=== PATIENT | female | born 1945 | race Caucasian/White ===

== ENCOUNTER 2017-11-29 09:14 | Outpatient (CLI) | payer MEDICARE, BC ==
[2017-11-29 09:47] LABS: BASOPHILS % (AUTO) 0.9 %; EOSINOPHILS # (AUTO) 0.1 10^3/uL (0.0-0.7); EOSINOPHILS % (AUTO) 2.8 %; HGB - HEMOGLOBIN 14.4 g/dL (12.0-16.0); LYMPHOCYTES # (AUTO) 1.1 10^3/uL (1.5-3.5); LYMPHOCYTES % (AUTO) 25.8 %; MEAN CORPUSCULAR HGB CONC 34.4 g/dL (32.0-36.0); MEAN CORPUSCULAR VOLUME 90.1 fL (81.0-99.0); MEAN PLATELET VOLUME 7.4 fL (7.9-10.8); MONOCYTES # (AUTO) 0.3 10^3/uL (0.0-1.0); MONOCYTES % (AUTO) 6.4 %; NEUTROPHILS # (AUTO) 2.8 10^3/uL (1.5-6.6); NEUTROPHILS % (AUTO) 64.1 %; PLT - PLATELET COUNT 215 10^3/uL (130-450); RED BLOOD COUNT 4.64 10^6/uL (4.20-5.40); RED CELL DISTRIBUTION WIDTH 13.5 % (12.0-15.0); WHITE BLOOD COUNT 4.4 x10^3/uL (4.8-10.8)
[2017-11-29 10:08] LABS: ALBUMIN 4.4 g/dL (3.2-5.5); ALBUMIN/GLOBULIN RATIO 1.7 (1.0-2.2); ALKALINE PHOSPHATASE 65 IU/L (42-121); ALT ALANINE AMINOTRANSFERASE 25 IU/L (10-60); AST ASPARTATE AMINOTRANSFERASE 26 IU/L (10-42); BILIRUBIN,TOTAL 1.4 mg/dL (0.2-1.0); BUN - BLOOD UREA NITROGEN 15 mg/dL (6-20); CALCIUM 9.5 mg/dL (8.5-10.3); CARBON DIOXIDE - CO2 27 mmol/L (21-32); CHLORIDE 106 mmol/L (101-111); CHOL/HDL RATIO 2.5 (<4.4); CHOLESTEROL 178 mg/dL; CK- CREATINE KINASE 184 IU/L (22-269); CREATININE 0.8 mg/dL (0.4-1.0); GFR - MDRD 71 (>89); GLUCOSE 107 mg/dL (70-100); HDL CHOLESTEROL 72 mg/dL; LDL CHOLESTEROL,CALCULATED 95 mg/dL; LDL/HDL RATIO 1.3 (<4.4); SODIUM 139 mmol/L (135-145); VLDL CHOLESTEROL 11 mg/dL
[2017-11-30 13:43] LABS: HEPATITIS C ANTIBODY NON-REACTIVE (NON-REACTIVE)
[2017-12-03 14:32] LABS: HEMOGLOBIN A1C 0.56 g/dL; HEMOGLOBIN A1C % 5.6 % (4.6-6.2)
== END 2017-11-29 09:15 | disposition home or self-care (01) ==
LOC: LAB 09:14
PROVIDERS: ATTEND Internal Medicine
DX: M19.90 Unspecified osteoarthritis, unspecified site (principal); Z79.899 Other long term (current) drug therapy; H40.9 Unspecified glaucoma; E78.5 Hyperlipidemia, unspecified; M85.80 Other specified disorders of bone density and structure, unspecified site; Z13.6 Encounter for screening for cardiovascular disorders; Z11.59 Encounter for screening for other viral diseases
CPT/HCPCS: 36415; 80053; 80061; 82550; 83036; 83721; 84443; 85025; 86803

== ENCOUNTER 2017-12-03 08:00 | Outpatient (CLI) | payer MEDICARE, BC ==
[2017-12-03 14:32] LABS: HEMOGLOBIN A1C 0.56 g/dL; HEMOGLOBIN A1C % 5.6 % (4.6-6.2)
== END 2017-12-03 08:01 ==
LOC: LAB.R 08:00
PROVIDERS: ATTEND Internal Medicine
DX: R73.01 Impaired fasting glucose (principal)
CPT/HCPCS: 83036

== ENCOUNTER 2018-01-03 14:47 | Outpatient (CLI) | payer MEDICARE, BC ==
--- NOTE | 2018-01-03 15:38 | CT Report ---
Reason: R FLANK PAIN Procedure Date: 01/03/2018 Accession Number: [id number] / [id number] Procedure: CT - Abdomen/Pelvis W/O CPT Code: FULL RESULT: EXAM: CT ABDOMEN AND PELVIS EXAM DATE: 01/03/2018 03:11 PM. CLINICAL HISTORY: Right FLANK PAIN. COMPARISONS: None. TECHNIQUE: Routine helical CT imaging was performed through the abdomen and pelvis. IV contrast: None. Enteric contrast: Oral contrast. Reconstructions: Coronal and sagittal. In accordance with CT protocol optimization, one or more of the following dose reduction techniques were utilized for this exam: automated exposure control, adjustment of mA and/or KV based on patient size, or use of iterative reconstructive technique. FINDINGS: Lung Bases: Emphysematous changes. Liver: Normal. No masses. Gallbladder/Bile Ducts: Unremarkable. Spleen: Normal. Pancreas: Normal. Adrenal Glands: Normal. Kidneys: Normal. No masses, stones or hydronephrosis. Normal ureters bilaterally. Peritoneal Cavity/Bowel: Normal. No free fluid, free air or adenopathy. No masses or acute inflammatory process. The appendix is well visualized and normal. Pelvic Organs: Hysterectomy. No stones in the small caliber urinary bladder. No free fluid nor adnexal mass lesions. Normal rectum. Vasculature: No aneurysms or other significant abnormality. Bones: Multilevel marked degenerative disk disease lumbar spine. No significant abnormality. Other: None. IMPRESSION: 1. Chronic lung disease. 2. Otherwise, unremarkable exam. No radiographic explanation for this lady's presenting symptoms. RADIA
== END 2018-01-03 14:48 | disposition home or self-care (01) ==
LOC: DI 14:47
PROVIDERS: ATTEND Internal Medicine
DX: R10.9 Unspecified abdominal pain (principal)
CPT/HCPCS: 74176

== ENCOUNTER 2018-02-08 09:20 | Outpatient (CLI) | payer MEDICARE, BC ==
[2018-02-08] MEDS ORDERED: ALBUTEROL NEB 2.5 MG/3 ML INH SCH (09:30)
== END 2018-02-08 09:21 | disposition home or self-care (01) ==
LOC: RT 09:20
PROVIDERS: ATTEND Internal Medicine
DX: R05 Cough (principal)
CPT/HCPCS: 94060

== ENCOUNTER 2018-11-26 07:50 | Outpatient (CLI) | payer MEDICARE, BC ==
[2018-11-26 08:25] LABS: BASOPHILS % (AUTO) 0.7 %; EOSINOPHILS # (AUTO) 0.1 10^3/uL (0.0-0.7); EOSINOPHILS % (AUTO) 2.5 %; HGB - HEMOGLOBIN 13.7 g/dL (12.0-16.0); LYMPHOCYTES % (AUTO) 25.5 %; MEAN CORPUSCULAR HEMOGLOBIN 30.9 pg (27.0-31.0); MEAN CORPUSCULAR HGB CONC 33.3 g/dL (32.0-36.0); MEAN PLATELET VOLUME 9.1 fL (7.9-10.8); MONOCYTES # (AUTO) 0.3 10^3/uL (0.0-1.0); MONOCYTES % (AUTO) 7.4 %; NEUTROPHILS # (AUTO) 2.6 10^3/uL (1.5-6.6); NEUTROPHILS % (AUTO) 63.7 %; PLT - PLATELET COUNT 200 10^3/uL (130-450); RED BLOOD COUNT 4.43 10^6/uL (4.20-5.40); RED CELL DISTRIBUTION WIDTH 12.6 % (12.0-15.0); WHITE BLOOD COUNT 4.1 x10^3/uL (4.8-10.8)
[2018-11-26 08:54] LABS: ALBUMIN 4.1 g/dL (3.2-5.5); ALBUMIN/GLOBULIN RATIO 1.6 (1.0-2.2); ALKALINE PHOSPHATASE 60 IU/L (42-121); ALT ALANINE AMINOTRANSFERASE 25 IU/L (10-60); AST ASPARTATE AMINOTRANSFERASE 25 IU/L (10-42); BILIRUBIN,TOTAL 1.5 mg/dL (0.2-1.0); BUN - BLOOD UREA NITROGEN 17 mg/dL (6-20); CALCIUM 9.6 mg/dL (8.5-10.3); CARBON DIOXIDE - CO2 25 mmol/L (21-32); CHLORIDE 106 mmol/L (101-111); CHOL/HDL RATIO 2.3 (<4.4); CHOLESTEROL 152 mg/dL; CK- CREATINE KINASE 128 IU/L (22-269); CREATININE 0.8 mg/dL (0.4-1.0); GFR - MDRD 71 (>89); GLUCOSE 100 mg/dL (70-100); HDL CHOLESTEROL 66 mg/dL; LDL CHOLESTEROL,CALCULATED 73 mg/dL; LDL/HDL RATIO 1.1 (<4.4); SODIUM 141 mmol/L (135-145); TOTAL PROTEIN 6.7 g/dL (6.7-8.2); URIC ACID 5.1 mg/dL (2.6-7.2); VLDL CHOLESTEROL 13 mg/dL
[2018-11-26 09:14] LABS: RHEUMATOID FACTOR NEGATIVE (Negative)
[2018-11-26 09:20] LABS: HB2 TOTAL 14.6 g/dL; HEMOGLOBIN A1C 0.55 g/dL; HEMOGLOBIN A1C % 5.6 % (4.6-6.2)
[2018-11-26 09:26] LABS: CRP - C-REACTIVE PROTEIN < 1.0 mg/dL (0-1.0)
[2018-11-28 12:48] LABS: ANA SCREEN NEGATIVE (NEGATIVE)
== END 2018-11-26 07:51 | disposition home or self-care (01) ==
LOC: LAB 07:50
PROVIDERS: ATTEND Internal Medicine
DX: E78.5 Hyperlipidemia, unspecified (principal); R73.01 Impaired fasting glucose; Z12.12 Encounter for screening for malignant neoplasm of rectum; Z12.11 Encounter for screening for malignant neoplasm of colon; M25.50 Pain in unspecified joint; Z13.6 Encounter for screening for cardiovascular disorders; Z79.899 Other long term (current) drug therapy
CPT/HCPCS: 36415; 80053; 80061; 82550; 83036; 83721; 84443; 84550; 85025; 85651; 86038; 86140; 86200; 86430

== ENCOUNTER 2018-12-09 12:15 | Outpatient (CLI) | payer MEDICARE, BC ==
--- NOTE | 2018-12-09 14:01 | XRAY Report ---
Reason: COUGH,DYSPNEA Procedure Date: 12/09/2018 Accession Number: [id number] / [id number] Procedure: XR - Chest 2 View X-Ray CPT Code: 66613 FULL RESULT: EXAM: CHEST RADIOGRAPHY EXAM DATE: 12/09/2018 12:26 PM. CLINICAL HISTORY: Nonproductive cough and dyspnea for 1 month. COMPARISON: None. TECHNIQUE: 2 views. FINDINGS: Lungs/Pleura: No focal opacities evident. No pleural effusion. No pneumothorax. Overexpanded. Mediastinum: Heart and mediastinal contours are unremarkable. Other: None. IMPRESSION: Overexpanded lungs. RADIA
== END 2018-12-09 12:16 | disposition home or self-care (01) ==
LOC: DI 12:15
PROVIDERS: ATTEND Internal Medicine
DX: R06.00 Dyspnea, unspecified (principal); R05 Cough
CPT/HCPCS: 71046

== ENCOUNTER 2018-12-16 11:31 | Outpatient (CLI) | payer MEDICARE, BC ==
--- NOTE | 2018-12-16 12:01 | XRAY Report ---
Reason: PAIN IN LEFT FINGERS Procedure Date: 12/16/2018 Accession Number: [id number] / [id number] Procedure: XR - Hand 3 View LT CPT Code: FULL RESULT: EXAM: LEFT HAND RADIOGRAPHY EXAM DATE: 12/16/2018 11:41 AM. CLINICAL HISTORY: Pain in left fingers. COMPARISON: None. TECHNIQUE: 3 views. FINDINGS: Bones: Generalized bony demineralization. No fractures or bone lesions. Joints: Severe narrowing of the second, third, and fifth distal interphalangeal articulations. Moderate narrowing of the remainder of the interphalangeal articulations. There is moderate to severe narrowing of the first carpometacarpal articulation. Soft Tissues: . No soft tissue swelling. IMPRESSION: Moderate to severe degenerative changes of the interphalangeal articulations and the first carpometacarpal articulation. RADIA
== END 2018-12-16 11:32 | disposition home or self-care (01) ==
LOC: DI 11:31
PROVIDERS: ATTEND Internal Medicine
DX: M19.042 Primary osteoarthritis, left hand (principal); M18.12 Unilateral primary osteoarthritis of first carpometacarpal joint, left hand

== ENCOUNTER 2020-03-02 07:29 | Outpatient (CLI) | payer MEDICARE, BC ==
[2020-03-02 08:27] LABS: ALBUMIN/GLOBULIN RATIO 1.6 (1.0-2.2); ALKALINE PHOSPHATASE 69 IU/L (42-121); ALT ALANINE AMINOTRANSFERASE 27 IU/L (10-60); AST ASPARTATE AMINOTRANSFERASE 23 IU/L (10-42); BILIRUBIN,TOTAL 1.4 mg/dL (0.2-1.0); BUN - BLOOD UREA NITROGEN 13 mg/dL (6-20); CALCIUM 9.4 mg/dL (8.5-10.3); CARBON DIOXIDE - CO2 26 mmol/L (21-32); CHLORIDE 103 mmol/L (101-111); CHOL/HDL RATIO 2.7 (<4.4); CHOLESTEROL 163 mg/dL; CREATININE 0.8 mg/dL (0.4-1.0); GLUCOSE 109 mg/dL (70-100); HDL CHOLESTEROL 61 mg/dL; LDL CHOLESTEROL,CALCULATED 88 mg/dL; LDL/HDL RATIO 1.4 (<4.4); SODIUM 139 mmol/L (135-145); TOTAL PROTEIN 6.5 g/dL (6.7-8.2); URIC ACID 5.2 mg/dL (2.6-7.2); VLDL CHOLESTEROL 14 mg/dL
[2020-03-02 08:31] LABS: BASOPHILS % (AUTO) 0.9 %; CRP - C-REACTIVE PROTEIN < 1.0 mg/dL (0-1.0); EOSINOPHILS # (AUTO) 0.1 10^3/uL (0.0-0.7); HGB - HEMOGLOBIN 13.8 g/dL (12.0-16.0); LYMPHOCYTES # (AUTO) 1.1 10^3/uL (1.5-3.5); LYMPHOCYTES % (AUTO) 26.2 %; MEAN CORPUSCULAR HEMOGLOBIN 31.2 pg (27.0-31.0); MEAN CORPUSCULAR HGB CONC 33.6 g/dL (32.0-36.0); MEAN PLATELET VOLUME 9.7 fL (7.9-10.8); MONOCYTES # (AUTO) 0.3 10^3/uL (0.0-1.0); MONOCYTES % (AUTO) 6.7 %; NEUTROPHILS # (AUTO) 2.7 10^3/uL (1.5-6.6); PLT - PLATELET COUNT 219 10^3/uL (130-450); RED BLOOD COUNT 4.42 10^6/uL (4.20-5.40); RED CELL DISTRIBUTION WIDTH 12.5 % (12.0-15.0); WHITE BLOOD COUNT 4.3 x10^3/uL (4.8-10.8)
[2020-03-02 11:31] LABS: RHEUMATOID FACTOR NEGATIVE (Negative)
== END 2020-03-02 07:30 | disposition home or self-care (01) ==
LOC: LAB 07:29
PROVIDERS: ATTEND Family Medicine
DX: E78.5 Hyperlipidemia, unspecified (principal); R03.0 Elevated blood-pressure reading, without diagnosis of hypertension; M19.049 Primary osteoarthritis, unspecified hand
CPT/HCPCS: 36415; 80053; 80061; 83721; 84443; 84550; 85025; 85651; 86140; 86430

== ENCOUNTER 2020-03-30 08:20 | Outpatient (CLI) | payer MEDICARE, BC ==
--- NOTE | 2020-03-30 17:34 | DEXA Report ---
PROCEDURE: Dexa Spine and/or Hip INDICATIONS: POSTMENOPAUSAL TECHNIQUE: Dual energy x-ray absorptiometry (DXA) was performed on a JANZZ System. Regions measur ed are the AP Spine, femoral neck, and if needed forearm. COMPARISON: None. FINDINGS: Lumbar Spine: Bone Mineral Density 1.271 g/cm/cm,T score 0.8, normal Left Hip: Bone Mineral Density 0.798 g/cm/cm,T score -1.7, osteopenia Left Femoral Neck: Bone Mineral Density 0.733 g/cm/cm, T score -2.2, osteopenia (T score greater or equal to -1.0: NORMAL) (T score from -1.1 to -2.4: OSTEOPENIA) (T score less than or equal to -2.5 to: OSTEOPOROSIS) Impression: Osteopenia. Patients with diagnosis of osteoporosis or osteopenia should have regular bone mineral density assess ment. For those eligible for Medicare, routine testing is allowed once every 2 years. Testing frequ ency can be increased for patients who have rapidly progressing disease or for those who are receivin g medical therapy to restore bone mass. Reviewed by: Dorota Kang MD, PhD on 03/30/2020 5:33 PM PST Approved by: Dorota Kang MD, PhD on 03/30/2020 5:33 PM PST Station ID: [id number]
== END 2020-03-30 08:21 | disposition home or self-care (01) ==
LOC: DI 08:20
PROVIDERS: ATTEND Family Medicine
DX: M85.89 Other specified disorders of bone density and structure, multiple sites (principal); Z78.0 Asymptomatic menopausal state

== ENCOUNTER 2020-08-21 15:52 | Outpatient (CLI) | payer MEDICARE, BC | END 2020-08-21 15:53 | disposition critical access hospital (66) | LOC: EMS 15:52 | DX: R10.9 Unspecified abdominal pain (principal); R11.2 Nausea with vomiting, unspecified | CPT/HCPCS: A0425; A0427 ==

== ENCOUNTER 2020-08-21 16:01 | Emergency (ER) | payer MEDICARE, BC ==
[2020-08-21] MEDS ORDERED: HYDROmorphone 1 MG/ML CARPUJECT IVP STA (16:10)
[2020-08-21] MEDS ORDERED: ONDANSETRON 4 MG/2 ML VIAL IVP STA (16:10)
--- NOTE | 2020-08-21 16:14 | ED Physician Documentation ---
History of Present Illness - Stated complaint Stated Complaint: LRQ PX - Additonal information Additional information: 75-year-old female is brought to the emergency department via EMS for evaluation of acute onset right lower quadrant abdominal pain with associated nausea and vomiting. Pain does not radiate. No history of similar. She does retain her appendix but does have a surgical history of radical hysterectomy. No recent fevers. No dysuria urgency or frequency. Review of Systems Constitutional: denies: Fever, Chills Eyes: reports: Reviewed and negative Ears: reports: Reviewed and negative Nose: reports: Reviewed and negative Throat: reports: Reviewed and negative Cardiac: reports: Reviewed and negative Respiratory: reports: Reviewed and negative GI: reports: Abdominal Pain, Nausea, Vomiting. denies: Constipation, Diarrhea : denies: Dysuria, Frequency, Hesitancy Skin: reports: Reviewed and negative Musculoskeletal: reports: Reviewed and negative Neurologic: reports: Reviewed and negative PD PAST MEDICAL HISTORY - Present Medications Home Medications: Ambulatory Orders Medication Instructions Recorded Confirmed Ibuprofen [Motrin] 1 tablet PO BID 08/21/20 08/21/20 Simvastatin [Zocor] 40 mg PO HS 08/21/20 08/21/20 - Allergies Allergies/Adverse Reactions: Allergies Allergy/AdvReac Type Severity Reaction Status Date / Time No Known Drug Allergies Allergy Verified 08/21/20 16:13 PD ED PE EXPANDED - General General: Alert, In Pain - Cardiac Cardiac: Regular Rate, Radial strong equal, Pedal strong equal, Cap refill < 2 sec - Respiratory Respiratory: Clear to ausultation zuleima. No: Distress, Labored - Abdomen Abdomen: Normal Bowel sounds, Tender to palpation, Rebound, Guarding (equivocal mcburneys RLQ) - Derm Derm: Normal color, Warm and dry. No: Rash - Extremities Extremities: Normal. No: Deformity, Tenderness - Neuro Neuro: Alert and Oriented X 3, CNII-XII intact - GCS Eye Opening: Spontaneous Motor: Obeys Commands Verbal: Oriented Total: 15 Results - Vitals Vitals: Vital Signs - 24 hr 08/21/20 08/21/20 16:14 17:07 Temperature 36.7 C Heart Rate 61 66 Respiratory 16 14 Rate Blood Pressure 162/78 H 114/87 H O2 Saturation 99 96 Oxygen O2 Source Room air - Labs Labs: Laboratory Tests 05/09/21 05/09/21 05/09/21 16:17 16:17 16:17 WBC 4.0 L RBC 4.07 L Hgb 12.7 Hct 37.8 MCV 92.9 MCH 31.2 H MCHC 33.6 RDW 13.1 Plt Count 184 MPV 9.2 Neut # (Auto) 1.9 Lymph # (Auto) 1.6 [place] # (Auto) 0.3 Eos # (Auto) 0.1 Baso # (Auto) 0.0 Absolute Nucleated RBC 0.00 Nucleated RBC % 0.0 Sodium 140 Potassium 3.9 Chloride 104 Carbon Dioxide 28 Anion Gap 8.0 BUN 24 H Creatinine 0.8 Estimated GFR (MDRD) 70 L Glucose 114 H Lactic Acid 1.2 Calcium 9.2 Total Bilirubin 1.7 H AST 26 ALT 26 Alkaline Phosphatase 65 Total Protein 6.4 L Albumin 4.2 Globulin 2.2 Albumin/Globulin Ratio 1.9 Lipase 27 Urine Color Urine Clarity Urine pH Ur Specific [place] Urine Protein Urine Glucose (UA) Urine Ketones Urine Occult Blood Urine Nitrite Urine Bilirubin Urine Urobilinogen Ur Leukocyte Esterase Ur Microscopic Review Urine Culture Comments 08/21/20 17:50 WBC RBC Hgb Hct MCV MCH MCHC RDW Plt Count MPV Neut # (Auto) Lymph # (Auto) [place] # (Auto) Eos # (Auto) Baso # (Auto) Absolute Nucleated RBC Nucleated RBC % Sodium Potassium Chloride Carbon Dioxide Anion Gap BUN Creatinine Estimated GFR (MDRD) Glucose Lactic Acid Calcium Total Bilirubin AST ALT Alkaline Phosphatase Total Protein Albumin Globulin Albumin/Globulin Ratio Lipase Urine Color YELLOW Urine Clarity CLEAR Urine pH 7.0 Ur Specific [place] 1.015 Urine Protein NEGATIVE Urine Glucose (UA) NEGATIVE Urine Ketones NEGATIVE Urine Occult Blood NEGATIVE Urine Nitrite NEGATIVE Urine Bilirubin NEGATIVE Urine Urobilinogen 0.2 (NORMAL) Ur Leukocyte Esterase NEGATIVE Ur Microscopic Review NOT INDICATED Urine Culture Comments NOT INDICATED - Rads (name of study) CT abd Radiology: Final report received (Normal appendix. ), See rad report PD MEDICAL DECISION MAKING - ED course Complexity details: reviewed results, re-evaluated patient, considered differential, d/w patient ED course: 75-year-old female presents emergency department for acute right lower quadrant abdominal pain with associated nausea and vomiting. Pain was sudden sharp nonr adiating and severe. Screening labs revealed no leukocytosis. Mildly elevated BUN. Of note her T bili is 1.7 but the other transaminases are normal. On exam she was focally tender in the right lower quadrant. There was some guarding and rebound with an equivocal Domingo's. Urine showed no hematuria or signs of infection. We did undergo CT scanning of her abdomen with findings of a normal appendix. The biliary and gall system were also unremarkable. Here in the emergency department patient was given Dilaudid and Zofran with full resolution of symptoms. It is not clear why she had sudden onset right lower quadrant pain but this time she is tolerating oral diet and appears medically stable for discharge home. Emergent return precautions were discussed. Departure - Departure Disposition: , Self Care Clinical Impression: RLQ abdominal pain Condition: Stable Record reviewed to determine appropriate education?: Yes Instructions: ED Abdominal Pain Unkn Cause Comments: Juanita you were seen here in the emergency department today for sudden onset right lower quadrant abdominal pain. Your screening labs did not show any worrisome abnormalities. We were worried that this could be acute appendicitis. Therefore we did do a CT of your abdomen. Reassuringly your appendix is normal. It is not clear what caused your lower abdominal pain. However if the pain returns, you have uncontrolled vomiting fevers difficulty when you urinate please return immediately to the ER for a second look. It is important that you discuss this ED visit with your primary care provider. Please schedule a follow-up appointment in the next 1 to 2 weeks.
[2020-08-21 16:23] LABS: EOSINOPHILS # (AUTO) 0.1 10^3/uL (0.0-0.7); HCT - HEMATOCRIT 37.8 % (37.0-47.0); HGB - HEMOGLOBIN 12.7 g/dL (12.0-16.0); LYMPHOCYTES # (AUTO) 1.6 10^3/uL (1.5-3.5); LYMPHOCYTES % (AUTO) 39.9 %; MEAN CORPUSCULAR HEMOGLOBIN 31.2 pg (27.0-31.0); MEAN CORPUSCULAR HGB CONC 33.6 g/dL (32.0-36.0); MEAN CORPUSCULAR VOLUME 92.9 fL (81.0-99.0); MEAN PLATELET VOLUME 9.2 fL (7.9-10.8); MONOCYTES # (AUTO) 0.3 10^3/uL (0.0-1.0); MONOCYTES % (AUTO) 6.8 %; NEUTROPHILS # (AUTO) 1.9 10^3/uL (1.5-6.6); PLT - PLATELET COUNT 184 10^3/uL (130-450); RED BLOOD COUNT 4.07 10^6/uL (4.20-5.40); RED CELL DISTRIBUTION WIDTH 13.1 % (12.0-15.0)
[2020-08-21] MEDS ORDERED: IOPAMIDOL-300 100 ML VIAL ONE (16:33)
[2020-08-21 16:37] LABS: ALBUMIN 4.2 g/dL (3.2-5.5); ALBUMIN/GLOBULIN RATIO 1.9 (1.0-2.2); BILIRUBIN,TOTAL 1.7 mg/dL (0.2-1.0); CALCIUM 9.2 mg/dL (8.5-10.3); CREATININE 0.8 mg/dL (0.4-1.0); POTASSIUM 3.9 mmol/L (3.5-5.0); TOTAL PROTEIN 6.4 g/dL (6.7-8.2)
[2020-08-21] MEDS ORDERED: IOPAMIDOL-300 100 ML VIAL IVP ONE (16:56)
--- NOTE | 2020-08-21 17:45 | CT Report ---
PROCEDURE: Abdomen/Pelvis W INDICATIONS: acute RLQ pain CONTRAST: IV CONTRAST: Isovue 300 ml: 100 PO CONTRAST: *NO PO CONTRAST TECHNIQUE: After the administration of nonionic IV contrast, 5 mm thick sections acquired from the diaphragms to the symphysis. 5 mm thick coronal and sagittal reformats were acquired. For radiation dose reducti on, the following was used: automated exposure control, adjustment of mA and/or kV according to simba ent size. COMPARISON: 01/03/2019 FINDINGS: Image quality: Excellent. ABDOMEN: Lung bases: Mild fibrotic change is again seen at the lung bases. Heart size is normal. A small hiat al hernia is incidentally noted. Solid organs: Liver and spleen are normal in size and enhancement. Subcentimeter low-density lesion s can be seen within the liver, which are attributed to small cysts or hemangiomas. Gallbladder wall does not appear thickened. Biliary system is non dilated. Pancreas enhances normally. No adrenal nodules. Kidneys demonstrate normal size and enhancement, without hydronephrosis. Peritoneum and bowel: In this patient with this given history, scrutiny is given to the appendix. Th e appendix is well-seen and is normal, as on series 3 images 51 through 63. No focal right lower quad rant inflammatory changes are seen. Bowel loops demonstrate normal wall thickness and caliber. No free fluid or air. Nodes and vessels: No retroperitoneal or mesenteric adenopathy by size criteria. Aorta and inferior vena cava are normal in size. Incidental note is made of a retroaortic left renal vein. Miscellaneous: No ventral hernias. PELVIS: Genitourinary: Bladder wall thickness is normal. This patient is status post hysterectomy. No adnex al masses can be seen. Miscellaneous: No inguinal hernias or adenopathy. Bones: No suspicious bony lesions. No vertebral body compression fractures. Degenerative changes ar e seen throughout, which are worst involving the lumbar spine. IMPRESSION: Normal appendix. Incidental note is made of: Mild, stable fibrotic change at the lung bases Small hiatal hernia Retroaortic left renal vein Hysterectomy Lumbar spine degenerative change Reviewed by: Rick Fields MD on 08/21/2020 4:44 PM AKDT Approved by: Rick Fields MD on 08/21/2020 4:44 PM AKDT Station ID: [id number]
[2020-08-21 18:13] LABS: BILIRUBIN,URINE NEGATIVE (NEGATIVE); GLUCOSE, URINE (UA) NEGATIVE (NEGATIVE); KETONES,URINE (UA) NEGATIVE (NEGATIVE); LEUKOCYTE ESTERASE, URINE NEGATIVE (NEGATIVE); NITRITE,URINE NEGATIVE (NEGATIVE); OCCULT BLOOD,URINE NEGATIVE (NEGATIVE); PROTEIN,URINE NEGATIVE (NEGATIVE); UROBILINOGEN,URINE 0.2 (NORMAL) E.U./dL (NORMAL)
[2020-08-21 18:14] LABS: CLARITY,URINE CLEAR (CLEAR)
[2020-08-21 18:46] VITALS: BP 152/80
== END 2020-08-21 18:45 | disposition home or self-care (01) ==
LOC: EDUNIT# → EDBD → ED 16:01
DX: R10.31 Right lower quadrant pain (principal); R11.2 Nausea with vomiting, unspecified
CPT/HCPCS: 36415; 74177; 80053; 81003; 83605; 83690; 85025; 96374; 96375; 99283; 99284; J1170; Q9967; 81001; 87086